=== PATIENT | female | born 1985 | race Two or more races ===

== ENCOUNTER 2024-09-16 14:59 | Emergency (ER) | payer MEDICAID, SELFPAY ==
[2024-09-16 14:59] VITALS: BMI 27.4
[2024-09-16 15:27] VITALS: BP 127/85; PULSE 86; RESP 16; TEMP 37.2; O2SAT 100
[2024-09-16] MEDS: DIPHTH,PERTUSS(ACELL),TET VAC 0.5 ML VIAL IMi (15:56)
[2024-09-16] MEDS: cefTRIAXone 2 GM, LIDOCAINE 1% 20 ML 4.2 ML IM (15:57)
--- NOTE | 2024-09-16 16:16 | PD.EDHAND ---
Upper Extremity Injury RME/HPI General Chief Complaint: Hand/Wrist Problems Stated Complaint: RIGHT HAND SWELLING AFTER CAT BITE Time Seen by Provider: 09/16/24 15:21 Source: patient Arrival date/time: 09/16/24 14:59 This is a 38-year-old female presents to the emergency department with complaints of dorsum swelling of right hand since yesterday. Patient reports that yesterday she provoked a cat by grabbing it from the street, so it would not get run over. She noticed today swelling erythema and pain prompting her ED visit today. Mode of arrival: ambulatory Limitations: no limitations Related Data Previous Rx's ?Medication ?Instructions ?Recorded ferrous sulfate 325 mg (65 mg 325 mg PO QDAY #30 tabs 04/15/21 iron) tablet (iron) amoxicillin 875 mg-potassium 1 tab PO BID #14 tabs 09/16/24 clavulanate 125 mg tablet Allergies Allergy/AdvReac Type Severity Reaction Status Date / Time NKA* Allergy Uncoded 09/16/24 15:01 Review of Systems Review of Systems Systems Reviewed: All systems reviewed, normal except as documented Narrative Review of Systems: Gen: No fever, no chills, no weight loss EYES: No discharge, no visual changes, no pain HEENT: No ear pain, no congestion, no sore throat PULM: No shortness of breath, no cough, no congestion CV: No chest pain, no dyspnea on exertion, no palpitations GI: No nausea, no vomiting, no diarrhea, no pain, no constipation : No frequency, no urgency,? no dysuria Musc/skel: No joint pain, no back pain Skin: +?Right hand Psyc: No hallucinations, no depression Heme/Lymph: No easy bleeding or bruising tendencies Neuro: No weakness, no headache ED Exam General Limitations: Present no limitations General appearance: Present alert and in no apparent distress Head Head exam: Present atraumatic Eye Eye exam: Present normal appearance, PERRL and EOMI ENT ENT exam: Present normal exam, normal oropharynx and mucous membranes moist Neck Neck exam: Present normal inspection, full ROM and trachea midline Chest Chest inspection: Present normal inspection and symmetric chest wall rise Respiratory Respiratory exam: Present normal lung sounds bilaterally Cardiovascular Cardiovascular exam: Present regular rate, normal rhythm and normal heart sounds Abdominal Exam Abdominal exam: Present soft and normal bowel sounds Extremities Exam Extremities exam: Present full ROM Expanded Upper Extremity Exam Hand L/R back image: 1. + Erythema redness hot to touch right dorsum hand with 2 puncture wounds. No abscess formation Back Exam Back exam: Present normal inspection and full ROM Neurological Exam Neurological exam: Present alert, oriented X3 and CN II-XII intact Psychiatric Psychiatric exam: Present normal affect and normal mood Skin Skin exam: Present warm, dry, intact and normal color Course Quality Measures none Orders Category Date Time Status Tet,Diphth,Pertuss(Acell)-Tdap [Boostrix Vacc] Med 09/16/24 15:34 Discontinued 0.5 ml IMI .ONCE ONE cefTRIAXone [Rocephin] 2 gm Med 09/16/24 15:34 Discontinued Lidocaine 1% 20 ml [Xylocaine 1% 20 ML] 4.2 ml IM X1 Vital Signs Vital signs: Vital Signs Temperature 99.0 F 09/16/24 15:27 Pulse Rate 86 09/16/24 15:27 Respiratory Rate 16 09/16/24 15:27 Blood Pressure 127/85 H 09/16/24 15:27 Pulse Oximetry (%) 100 09/16/24 15:27 Oxygen Delivery Method Room Air 09/16/24 15:27 Extremity Injury MDM Narrative MDM Narrative:: Clinically appears to have cellulitis to dorsum of right hand status post cat bite. IM Rocephin was given in ED wound care dressing. Advised to start Augmentin twice daily. Follow-up with primary doctor primary doctor in 48 hours for follow-up care. Advised to return if there is changes in condition or outpatient failure of antibiotics. Patient data External records reviewed:: [facility] previous records Clinical information provided by:: patient Social determinants that could affect healthcare access:: none Patient has the following chronic illnesses:: No chronic illness How is presenting disease/condition affected by chronic disease/condition?: no chronic disease Evaluation data The following diagnostics were reviewed and interpreted by me:: other (specify) Lab and/or radiology exams considered but not ordered:: No Interpretation Summary: n/a Medications / Prescriptions Medications or Prescriptions considered but not ordered:: no Medication administrations:: Medication Administration History Discontinued Medications Ceftriaxone Sodium 2 gm/ (Lidocaine HCl 4.2 ml) 0 gm IM X1 ONE Stop: 09/16/24 15:35 Last Admin: 09/16/24 15:57 Dose: 2,000 mg Documented By: Diphtheria/Tetanus/Acell Pertussis (Diphth,Pertuss(Acell),Tet Vac 0.5 Ml Vial) 0.5 ml IMi .ONCE ONE Stop: 09/16/24 15:35 Last Admin: 09/16/24 15:56 Dose: 0.5 ml Documented By: All medications administered and effective Consultations Consultation(s) initiated? (list below): No Diagnosis Upper Extremity Injury Differential Diagnosis: sprain and strain of wrist, fracture of hand and other (Cellulitis hand, abscess formation, cat bite) Most likely diagnosis given after review of the tests above:: Cellulitis right hand status post cat bite Admission Indicated Admission indicated?: not indicated Admission Request Was there a request for admission?: No Disposition Plan Disposition Plan: Discharge Discharge Attestation Discharge Attestation: The patient and all family members were given an opportunity to ask questions and understood the discharge instructions. Discharge instructions specifically effects, indications for sooner follow up or return to the emergency department, and the expected course of current diagnosis. Patient condition: Stable Discharge Plan Plan Patient Disposition: HOME (Self Care) Patient condition on transfer: Stable Prescriptions/Referrals Prescriptions/Med Rec: New amoxicillin-pot clavulanate 875-125 mg tablet 1 tab PO BID Qty: 14 0RF No Action ferrous sulfate [iron] 325 mg (65 mg iron) tablet 325 mg PO QDAY Qty: 30 0RF Referrals: No Primary/Family,Physician [Primary Care Provider] - In 1 week Problem List Clinical Impression: Cat bite of hand, Cellulitis Patient/Caregiver Discharge Instructions Discharge Activity: activity as tolerated Education Materials: ED Cat Bite, ED Cellulitis Additional Instructions: - Antibiotics sent to pharmacy. -Keep area clean and dry -Your tetanus shot was updated today. -Please follow-up with your primary doctor in 24 to 48 hours. If any worsening as discussed please return to the emergency department as soon as possible. Print Language: Danish Stand Alone Forms: [employer]na Award Info., Patient Portal Info Letter Attestation Attestation The patient was seen by the midlevel practitioner. I, the co-signing physician, was present during the entire ER visit. While I did not physically examine the patient, I was available for consultation as needed.
== END 2024-09-16 16:33 | disposition home or self-care (01) ==
PROVIDERS: Emergency Provider Emergency Medicine
DX: S60.571A Other superficial bite of hand of right hand, initial encounter (principal); L03.113 Cellulitis of right upper limb; W55.01XA Bitten by cat, initial encounter; Z23 Encounter for immunization
CPT/HCPCS: 90471; 90715; 96372; 99283; J0696; J3490

== ENCOUNTER 2024-10-14 20:44 | Emergency (ER) | payer MEDICAID, SELFPAY ==
[2024-10-14 20:44] VITALS: BMI 29.2
--- NOTE | 2024-10-14 21:16 | EDNOTE_ITS ---
ED Wound/Laceration-RME/HPI General Chief Complaint: Wound/Laceration Stated Complaint: LAC TO LEFT HAND Time Seen by Provider: 10/14/24 20:53 Arrival date/time: 10/14/24 20:44 39 year old female present to emergence room with c/o of left hand laceration today. uptodate with tetanus LOCATION: hand SEVERITY: Symptoms are described as being severe with limitations on activities of daily living QUALITY: Symptoms are described as being dull or achy CONTEXT: cut finger while washing dishes at home DURATION/TIMING: The symptoms started approximately immediately prior to arrival ago and have been constant this then. ASSOCIATED SYMPTOMS: The patient is unable to identify any other associated symptoms. MODIFYING FACTORS: The patient is unable to identify any alleviating or aggravating symptoms. PERTINENT ROS: no fevers, no headache, no neck or chest pain, no unexplained nausea or vomiting, no focal neurological deficits REVIEW OF SYSTEMS: See History of Present Illness - with the exception of those mentioned in the history of present illness, all other systems reviewed and reported as negative GENERAL: In general the patient is awake, interactive, in an emergency department gurney. HEAD/EYES/EARS/NOSE/THROAT: normo-cephalic, atraumatic, mucus membranes are moist, anicteric, palpebral conjunctiva is pink, trachea is midline. EXTREMITY: Left 2nd finger base C shape laceraion. no webspace involvement. no tenderness to palpation over the long bones or large joints of the bilateral upper and lower extremities, no joint swelling, no joint erythema, no unilateral leg swelling and no peripheral edema. SKIN: warm, dry, well-perfused, no jaundice, no rash, no telangiectasias or petechia. PSYCH: calm, cooperative, no evidence of psychosis or agitation Related Data Previous Rx's ?Medication ?Instructions ?Recorded ferrous sulfate 325 mg (65 mg 325 mg PO QDAY #30 tabs 04/15/21 iron) tablet (iron) amoxicillin 875 mg-potassium 1 tab PO BID #14 tabs 09/16/24 clavulanate 125 mg tablet Allergies Allergy/AdvReac Type Severity Reaction Status Date / Time NKA* Allergy Uncoded 09/16/24 15:01 Course Course Course Narrative: Patient is admitted to the Emergency Department and evaluated. Patient appears well, is non-toxic and well hydrated. The wound is sutured. No signs of tendon or neurovascular involvement. Patient is given wound care and follow up instructions. Quality Measures none Orders Category Date Time Status Set Up Suture Tray STAT Care 10/14/24 21:23 Active Vital Signs Vital signs: Vital Signs Temperature 99 F 10/14/24 21:17 Pulse Rate 77 10/14/24 21:17 Respiratory Rate 18 10/14/24 21:17 Blood Pressure 144/85 H 10/14/24 21:17 Pulse Oximetry (%) 95 10/14/24 21:17 Oxygen Delivery Method Room Air 10/14/24 21:17 Procedures -ED Laceration Laceration 1: Site: hand Size (cm): 1.5 Description: irregular and clean Depth: simple, single layer Local Anesthetic: lidocaine 1% Amount of anesthesia used (mL): 3 Pre-repair: wound explored, irrigated extensively and deep structures intact Skin layer closed with: nylon Size (cm): 4-0 Number of sutures: 3 Technique: horizontal mattress Wound / Laceration Patient data External records reviewed:: None Clinical information provided by:: patient Social determinants that could affect healthcare access:: none Patient has the following chronic illnesses:: none How is presenting disease/condition affected by chronic disease/condition?: no chronic disease Evaluation data The following diagnostics were reviewed and interpreted by me:: other (specify) (none ) Lab and/or radiology exams considered but not ordered:: none Interpretation Summary: none Medications / Prescriptions Medications or Prescriptions considered but not ordered:: none Medication administrations:: none Consultations Consultation(s) initiated? (list below): No Diagnosis Wound Differential Diagnosis: laceration and avulsion of skin Most likely diagnosis given after review of the tests above:: hand laceration Admission Indicated Admission indicated?: not indicated Admission Request Was there a request for admission?: No Disposition Plan Disposition Plan: Discharge Discharge Attestation Discharge Attestation: The patient and all family members were given an opportunity to ask questions and understood the discharge instructions. Discharge instructions specifically effects, indications for sooner follow up or return to the emergency department, and the expected course of current diagnosis. Patient condition: Stable Discharge Plan Plan Patient Disposition: HOME (Self Care) Health Concerns: return to ED or PCP in 10-14 days for suture removal return to ED if symptoms worsen Prescriptions/Referrals Prescriptions/Med Rec: No Action ferrous sulfate [iron] 325 mg (65 mg iron) tablet 325 mg PO QDAY Qty: 30 0RF amoxicillin-pot clavulanate 875-125 mg tablet 1 tab PO BID Qty: 14 0RF Referrals: Temporary Provider,ED [Primary Care Provider] - In 1 week Problem List Clinical Impression: Laceration Patient/Caregiver Discharge Instructions Education Materials: ED Laceration, Hand: All Closures Print Language: Maltese Stand Alone Forms: Dionna Award Info., Patient Portal Info Letter
[2024-10-14 21:17] VITALS: BP 144/85; PULSE 77; RESP 18; TEMP 37.2; O2SAT 95
[2024-10-14 22:03] VITALS: BP 138/76; PULSE 80; RESP 18; TEMP 36.8; O2SAT 95
== END 2024-10-14 22:11 | disposition home or self-care (01) ==
LOC: SERX 22:07
PROVIDERS: Emergency Provider Emergency Medicine; PCP Family Medicine
DX: S61.412A Laceration without foreign body of left hand, initial encounter (principal); W45.8XXA Other foreign body or object entering through skin, initial encounter; Y93.G1 Activity, food preparation and clean up
CPT/HCPCS: 12001; 99283